=== PATIENT | male | born 1990 | race Asian ===

== ENCOUNTER 2017-03-09 17:59 | Emergency (ER) | payer MEDICAID ==
[~2017-03-09] VITALS: Ht 175.3 cm; Wt 61.3 kg
[~2017-03-09 17:59] MED LIST: CEPH250T PO; IBUP-1985 PO; NO HOME MEDS
[2017-03-09] MEDS ORDERED: ketorolac trometh inj. 60 MG/2 ML VIAL IM ONE (18:55)
[2017-03-09 19:17] VITALS: BP 124/71
== END 2017-03-09 19:12 | disposition home or self-care (01) ==
LOC: ER 17:59
DX: R07.81 Pleurodynia (principal); F15.10 Other stimulant abuse, uncomplicated
CPT/HCPCS: 71046; 96372; 99284; J1885